=== PATIENT | female | born 1995 | race African-American/Black ===

== ENCOUNTER 2021-09-27 09:02 | Outpatient (CLI) | payer OTHER | END 2021-09-27 09:03 | disposition home or self-care (01) | LOC: CSHLAB 09:02 | PROVIDERS: ATTEND Family Medicine | DX: Z01.812 Encounter for preprocedural laboratory examination (principal); O34.219 Maternal care for unspecified type scar from previous cesarean delivery; Z20.822 Contact with and (suspected) exposure to COVID-19 | CPT/HCPCS: 85027; 86593; 86780; 86850; 86900; 86901; 87340; U0003; U0005 ==

== ENCOUNTER 2021-09-28 05:24 | Inpatient (IN) | payer OTHER ==
[2021-09-27 12:54] LABS: Hemoglobin 11.5 g/dL (12.0-15.5); Mean Corpuscular HGB CONC 32.2 g/dL (32.0-36.0); Mean Corpuscular Hemoglobin 26.7 pg (27.0-33.0); Mean Platelet Volume 11.2 fl (7.4-10.4); Platelet Count 244 10x3/uL (150-450); RBC Distribution Width 16.2 % (11.5-14.5); White Blood Cell (WBC) Count 6.9 10x3/uL (3.5-10.5)
[2021-09-27 13:30] LABS: Hep B Surf Ag Non-Reactive S/CO (NonReactive)
[2021-09-27 13:38] LABS: Syphilis Antibody Index 18.45 S/CO (<1.00 Non-Reactive)
[2021-09-27 13:39] LABS: HBSAg Index 0.18 S/CO (0-0.99)
[2021-09-27 14:33] LABS: Syphilis Antibody INDETERMINATE (Nonreactive)
[2021-09-28 00:08] LABS: SARS-CoV-2 PCR by NAA Not Detected (NotDetected)
[2021-09-28] MEDS ORDERED: Ondansetron PF 4 MG/2 ML Vial IVP PRN ×2 (05:40→07:18)
[2021-09-28] MEDS ORDERED: Bicitra 30 ML UDCUP PO PRN (05:40)
[2021-09-28] MEDS ORDERED: Promethazine HCl 25 MG/ML VIAL IM PRN ×2 (05:40→07:18)
[2021-09-28] MEDS ORDERED: Famotidine/PF 20 mg/2ml Vial SLOW IVP PRN (05:40)
[2021-09-28] MEDS ORDERED: hydrALAZINE 20 MG/ML VIAL SLOW IVP PRN ×2 (05:40→10:25)
[2021-09-28] MEDS ORDERED: ceFAZolin 2 GM/Dextrose 50 ML 2 GM in Premix Bag 1 BAG IVPB SCH (05:45)
[2021-09-28] MEDS ORDERED: Azithromycin 500 MG in Sodium Chloride 0.9% 250 ML 250 ML IVPB SCH (05:45)
[2021-09-28 05:53] VITALS: BMI 48.2
[2021-09-28] MEDS ORDERED: Lactated Ringer's 1,000 ML IV SCH (06:00)
[2021-09-28] MEDS ORDERED: Ondansetron PF 4 MG/2 ML Vial ONE (07:04)
[2021-09-28] MEDS ORDERED: Fentanyl 100 MCG/2 ML VIAL ONE (07:04)
[2021-09-28] MEDS ORDERED: Phenylephrine 10 MG/ML VIAL ONE (07:04)
[2021-09-28] MEDS ORDERED: Oxytocin 10 UNITS/ML VIAL ONE ×3 (07:04→08:40)
[2021-09-28] MEDS ORDERED: Morphine PF 10 MG/10 ML VIAL ONE (07:04)
[2021-09-28] MEDS ORDERED: Ketorolac Tromethamine 30 MG/ML VIAL ONE (07:05)
[2021-09-28] MEDS ORDERED: Ondansetron HCl/PF 4 MG/2 ML Vial IVP PRN (07:18)
[2021-09-28] MEDS ORDERED: diphenhydrAMINE 50 MG/ML VIAL IVP PRN (07:18)
[2021-09-28] MEDS ORDERED: Fentanyl 100 MCG/2 ML VIAL SLOW IVP PRN (07:18)
[2021-09-28] MEDS ORDERED: Promethazine HCl 25 MG SUPP PR PRN (07:18)
[2021-09-28] MEDS ORDERED: Naloxone HCl 0.4 mg/ml Vial IV PRN (07:18)
[2021-09-28] MEDS ORDERED: Hydrocerin (Eucerin) Cream 120 gm Jar TOP PRN (07:18)
[2021-09-28] MEDS ORDERED: Meperidine HCl/PF 25 MG/ML VIAL SLOW IVP PRN (07:18)
[2021-09-28] MEDS ORDERED: Naloxone HCl 0.4 mg/ml Vial IVP PRN ×2 (07:18)
[2021-09-28] MEDS ORDERED: HYDROmorphone 2 MG/ML VIAL SLOW IVP PRN (07:18)
[2021-09-28] MEDS ORDERED: Ketorolac Tromethamine 30 MG/ML VIAL IVP SCH (07:30)
[2021-09-28] MEDS ORDERED: Communication Order-Pharmacy FS SCH (07:30)
[2021-09-28] MEDS ORDERED: diphenhydrAMINE 50 MG/ML VIAL ONE (08:18)
[2021-09-28] MEDS ORDERED: Boostrix 0.5 ML (Tdap) VIAL IM ONE (10:25)
[2021-09-28] MEDS ORDERED: Measles/Mumps/Rubella 10 MCG/0.5 ML VIAL SC ONE (10:25)
[2021-09-28] MEDS ORDERED: diphenhydrAMINE 25 MG CAP PO PRN (10:25)
[2021-09-28] MEDS ORDERED: Acetaminophen 325 MG TAB PO PRN (10:25)
[2021-09-28] MEDS ORDERED: Bisacodyl 10 MG SUPP PR PRN (10:25)
[2021-09-28] MEDS ORDERED: Simethicone Chewable 80 MG TAB PO PRN (10:25)
[2021-09-28] MEDS ORDERED: Lanolin Ointment 7 GM TUBE TOP PRN (10:25)
[2021-09-28] MEDS ORDERED: Ferrous Sulfate 325 MG TAB PO SCH (10:45)
[2021-09-28] MEDS ORDERED: Prenatal Vitamin 1 TAB PO SCH (10:45)
[2021-09-28] MEDS ORDERED: Docusate 100 MG CAP PO SCH (10:45)
[2021-09-28] MEDS: Ketorolac Tromethamine 30 MG/ML VIAL IVP PRN (14:35)
[2021-09-28] MEDS: Ferrous Sulfate 325 MG TAB PO SCH (21:31)
[2021-09-28] MEDS: Docusate 100 MG CAP PO SCH (21:31)
[2021-09-29] MEDS: Ketorolac Tromethamine 30 MG/ML VIAL IVP PRN (03:07)
[2021-09-29 05:19] LABS: Hemoglobin 10.4 g/dL (12.0-15.5); Mean Corpuscular HGB CONC 32.8 g/dL (32.0-36.0); Mean Corpuscular Hemoglobin 26.7 pg (27.0-33.0); Mean Corpuscular Volume 81.5 fl (81.6-98.3); Mean Platelet Volume 10.2 fl (7.4-10.4); Platelet Count 206 10x3/uL (150-450); Red Blood Cell (RBC) Count 3.89 10x6/uL (3.90-5.03); White Blood Cell (WBC) Count 9.2 10x3/uL (3.5-10.5)
[2021-09-29] MEDS: Ferrous Sulfate 325 MG TAB PO SCH ×2 (08:13→21:15)
[2021-09-29] MEDS: Prenatal Vitamin 1 TAB PO SCH (08:45)
[2021-09-29] MEDS: Docusate 100 MG CAP PO SCH ×2 (08:46→21:17)
[2021-09-29] MEDS: Ibuprofen 800 MG TAB PO SCH ×2 (14:07→21:17)
[2021-09-29] MEDS: HYDROcodone/Acetaminophen 5/325 mg Tablet PO PRN ×2 (14:09→19:31)
[2021-09-30] MEDS: HYDROcodone/Acetaminophen 5/325 mg Tablet PO PRN ×4 (04:12→18:58)
[2021-09-30] MEDS: Ibuprofen 800 MG TAB PO SCH ×3 (05:29→21:39)
[2021-09-30] MEDS: Prenatal Vitamin 1 TAB PO SCH (08:59)
[2021-09-30] MEDS: Ferrous Sulfate 325 MG TAB PO SCH ×2 (08:59→21:40)
[2021-09-30] MEDS: Docusate 100 MG CAP PO SCH ×2 (08:59→21:39)
[2021-10-01] MEDS: HYDROcodone/Acetaminophen 5/325 mg Tablet PO PRN ×2 (00:30→05:44)
[2021-10-01] MEDS: Ibuprofen 800 MG TAB PO SCH (05:44)
[2021-10-01 07:51] VITALS: BP 109/57; TEMP 97.6
[2021-10-01] MEDS: Docusate 100 MG CAP PO SCH (10:04)
[2021-10-01] MEDS: Prenatal Vitamin 1 TAB PO SCH (10:04)
[2021-10-01] MEDS: Ferrous Sulfate 325 MG TAB PO SCH (10:04)
== END 2021-10-01 12:25 | disposition home or self-care (01) | DRG 787 ==
LOC: CSHLD 05:24 → CSHPP 09:43
PROVIDERS: ADMIT Family Medicine; ATTEND Family Medicine
PROC: 10D00Z1 Extraction of Products of Conception, Low, Open Approach (ICD-10-PCS; principal; 2021-09-28)
DX: O10.92 Unspecified pre-existing hypertension complicating childbirth (principal); D62 Acute posthemorrhagic anemia; Z20.822 Contact with and (suspected) exposure to COVID-19; Z37.0 Single live birth; Z3A.38 38 weeks gestation of pregnancy; O24.425 Gestational diabetes mellitus in childbirth, controlled by oral hypoglycemic drugs; Z79.84 Long term (current) use of oral hypoglycemic drugs; J45.909 Unspecified asthma, uncomplicated; O99.52 Diseases of the respiratory system complicating childbirth; F41.9 Anxiety disorder, unspecified; F32.A Depression, unspecified; O99.344 Other mental disorders complicating childbirth; O34.211 Maternal care for low transverse scar from previous cesarean delivery; Z79.899 Other long term (current) drug therapy; E66.9 Obesity, unspecified; O99.214 Obesity complicating childbirth; R11.2 Nausea with vomiting, unspecified; O99.893 Other specified diseases and conditions complicating puerperium; O90.81 Anemia of the puerperium
CPT/HCPCS: 36415; 36416; 51702; 85027; 86593; 86780; 86850; 86900; 86901; 87340; J0690; J1200; J1885; J2274; J2370; J2405; J2590; J3010; U0003; U0005

== ENCOUNTER 2022-02-10 10:35 | Emergency (ER) | payer OTHER ==
[2022-02-10 11:11] LABS: #Monocytes 0.5 10x3/uL (0.0-1.1); #Neutrophils 9.7 10x3/uL (1.5-8.4); %Basophils 0.2 % (0.0-2.0); %Eosinophils 0.3 % (0.0-6.0); %Lymphocytes 14.9 % (18.0-47.0); %Monocytes 4.2 % (0.0-10.0); %Neutrophils 80.1 % (40.0-75.0); Hemoglobin 12.5 g/dL (12.0-15.5); Mean Corpuscular HGB CONC 32.6 g/dL (32.0-36.0); Mean Corpuscular Hemoglobin 27.3 pg (27.0-33.0); Mean Corpuscular Volume 83.6 fl (81.6-98.3); Mean Platelet Volume 10.1 fl (7.4-10.4); Platelet Count 270 10x3/uL (150-450); RBC Distribution Width 14.1 % (11.5-14.5); Red Blood Cell (RBC) Count 4.58 10x6/uL (3.90-5.03); White Blood Cell (WBC) Count 12.1 10x3/uL (3.5-10.5)
[2022-02-10 11:15] LABS: Bilirubin Negative (Negative); Blood, Urine Negative (Negative); Clarity Clear (Clear); Glucose, Urine (Dipstick) Negative (Negative); Ketone, Urine 15 mg/dL (Negative); Leukocyte Trace (Negative); Nitrite Negative (Negative); Protein, Urine (Dipstick) Negative (Neg-Trace); Urobilinogen 0.2 mg/dL (Less than 2); pH, Urine 5.5 (5.0-9.0)
[2022-02-10 11:18] LABS: Specific Gravity, Urine Greater/Equal 1.030 (1.005-1.030)
[2022-02-10 11:21] LABS: ALT (SGPT) 18 U/L (8-55); AST (SGOT) 14 U/L (5-34); Alkaline Phosphatase 89 U/L (40-110); Anion Gap 10 mmol/L (10-20); BUN (Urea Nitrogen) 6 mg/dL (7.0-18.7); Bilirubin, Total 0.3 mg/dL (0.2-1.2); Calc. Creatinine Clearance 0 mL/min (70-130); Calcium 8.6 mg/dL (7.8-10.44); Carbon Dioxide 26 mmol/L (22-29); Chloride 104 mmol/L (98-107); Estimated GFR 107; Globulin 3.5 g/dL (2.4-3.5); Glucose 89 mg/dL (70-105); Lipase 26 U/L (8-78); Potassium 3.7 mmol/L (3.5-5.1); Protein, Total 7.5 g/dL (6.0-8.3); Sodium 136 mmol/L (136-145)
[2022-02-10 11:21] LABS: RBC/HPF 0-3 HPF (0-3)
[2022-02-10 11:22] LABS: Bacteria/HPF Rare-Few HPF (None Seen); Mucous/LPF 1+ LPF (<2+); Squamous Epithelial 0-3 HPF (0-3)
[2022-02-10 11:51] LABS: BHCG - Serum Negative (NEGATIVE); Pregs Control Background? CLEAR/WHITE (CLR/WHITE); Pregs Control Bar Appear? YES (CONTROL BAR)
[2022-02-10] MEDS ORDERED: Morphine 4 MG/ML VIAL ONE (12:00)
[2022-02-10] MEDS ORDERED: Ondansetron PF 4 MG/2 ML Vial ONE (12:01)
== END 2022-02-10 13:22 | disposition home or self-care (01) ==
LOC: CSHERS 10:35
DX: R10.9 Unspecified abdominal pain (principal)
CPT/HCPCS: 36415; 76705; 80053; 81003; 81015; 83690; 84703; 85025; 96374; 96375; J2270; J2405

== ENCOUNTER 2025-02-05 16:00 | Emergency (ER) | payer OTHER | END 2025-02-05 17:40 | disposition home or self-care (01) | LOC: CSHERS 16:00 | DX: S93.402A Sprain of unspecified ligament of left ankle, initial encounter (principal); Z75.3 Unavailability and inaccessibility of health-care facilities; W10.9XXA Fall (on) (from) unspecified stairs and steps, initial encounter ==

== ENCOUNTER 2025-05-26 20:31 | Emergency (ER) | payer OTHER | END 2025-05-26 21:45 | disposition home or self-care (01) | LOC: CSHERS 20:31 | DX: M25.572 Pain in left ankle and joints of left foot (principal); J45.909 Unspecified asthma, uncomplicated; Z79.51 Long term (current) use of inhaled steroids | CPT/HCPCS: 99283 ==